=== PATIENT | male | born 1985 | race Caucasian/White ===

== ENCOUNTER 2017-11-12 14:14 | Day surgery (SDC) | END 2017-11-12 21:14 | disposition home or self-care (01) ==

== ENCOUNTER 2018-01-27 13:43 | Emergency (ER) | END 2018-01-27 16:36 | disposition home or self-care (01) ==

== ENCOUNTER 2019-02-21 07:40 | Emergency (ER) | payer BC ==
[~2019-02-21] VITALS: Ht 160 cm; Wt 111.3 kg
[~2019-02-21 07:40] MED LIST: ACET1TAB40 PO; FAMO-96 PO; IBUP-1542 PO
[2019-02-21 07:46] VITALS: BP 132/74; PULSE 68; RESP 18; Ht 160 cm; Wt 111.3 kg
--- NOTE | 2019-02-21 08:17 | ERD ---
ER Documentation Chief Complaint Chief Complaint right knee pain after lifting something heavy x2 days HPI 33-year-old male with no reported past medical history presents with complaint of right knee pain 2 days. States he was lifting a heavy object when he felt his knee give out a bit. Since that time is had some swelling and pain to the area. He denies any weakness or numbness to affected limb. He denies any other injuries. At time of evaluation patient able to take multiple steps in examination room with minimal discomfort. He has a primary care physician a regularly follows up with. ROS All systems reviewed and are negative except as per history of present illness. Medications Home Meds Active Scripts Ibuprofen* (Motrin*) 600 Mg Tab, 600 MG PO Q6, #30 TAB Prov:HENRY ELLIS PA-C 02/21/19 Famotidine* (Pepcid*) 20 Mg Tablet, 20 MG PO BID for 7 Days, #14 TAB Prov:OCTAVIO FERMIN MD 01/27/18 Acetaminophen with Codeine (Acetaminophen-Cod #3 Tablet) 1 Each Tablet, 1 TAB PO Q6H PRN for PAIN, #7 TAB Prov:OCTAVIO FERMIN MD 01/27/18 Allergies Allergies: Coded Allergies: No Known Allergy (Unverified , 02/21/19) PMhx/Soc History of Surgery: Yes (NASAL SURGERY) Anesthesia Reaction: No Hx Neurological Disorder: No Hx Respiratory Disorders: No Hx Cardiac Disorders: No Hx Psychiatric Problems: No Hx Miscellaneous Medical Probl: No Hx Alcohol Use: Yes (SOCIALLY) Hx Substance Use: No Hx Tobacco Use: No Smoking Status: Never smoker FmHx Family History: No diabetes, No coronary disease, No other Physical Exam Vitals Vital Signs Date Temp Pulse Resp B/P (MAP) Pulse Ox O2 O2 Flow FiO2 Time Delivery Rate 02/21/19 97.6 68 18 132/74 100 07:46 (93) Physical Exam I have reviewed the triage vital signs. Const: Well nourished, well developed, appears stated age Eyes: PERRL, no conjunctival injection HENT: NCAT, Neck supple without meningismus CV: RRR, Warm, well-perfused extremities RESP: CTAB, Unlabored respiratory effort GI: soft, non-tender, non-distended, no masses MSK: No gross deformities appreciated, right knee with mild swelling, negative Rajni, length negative anterior drawer Lower Extremity - bilateral: Skin: No laceration Compartments: Soft Motor: Full active range of motion hip/knee/ankle/foot Sensation: Intact to light touch FDWS/MF/LF/P surfaces. Bones: Nontender pelvis/knee/proximal tibia/ malleoli/foot Joints: No effusion or laxity Pulses/Perfusion: 2+ DP, Capillary refill < 2 seconds Skin: Warm, dry. No rashes Neuro: grossly non focal Psych: Appropriate mood and affect. Procedures/MDM 33-year-old male presents with complaint of right knee pain. Denies any recent significant trauma or fall. Symptoms likely secondary to knee sprain. I have low suspicion for any acute process warranting further work-up including imaging at this time. [place] knee exam does not meet requirement for imaging. Patient is to take NSAID medications, rice. Follow-up with his PMD in case symptoms do not improve and he requires additional work-up such as MRI imaging to rule out ligamentous injury. Patient agrees with this plan all questions answered. DISPOSITION PLAN: We discussed follow up with the patient's primary care doctor within 24 to 48 hours. Patient counseled regarding my diagnostic impression and care plan. Prior to discharge all questions answered. Pt agrees with treatment plan and understands strict return precautions. Precautionary instructions provided including instructions to return to the ER if not improving or for any worsening or changing symptoms or concerns. Disclaimer: Inadvertent spelling and grammatical errors are likely due to EHR/dictation software use and do not reflect on the overall quality of patient care. Also, please note that the electronic time recorded on this note does not necessarily reflect the actual time of the patient encounter. Departure Diagnosis: Primary Impression: Knee injury Condition: Stable Patient Instructions: Knee Sprain Referrals: [facility] (PCP) Additional Instructions: Call your primary care doctor TOMORROW for an appointment during the next 2-3 days.See the doctor sooner or return here if your condition worsens before your appointment time. Take anti-inflammatory medications as prescribed. This systems should improve with reduced swelling and pain. Still have knee instability you may need referral for additional imaging such as MRI. Please follow-up with your PMD. HENRY ELLIS PA-C Feb 21, 2019 08:17
== END 2019-02-21 08:52 | disposition home or self-care (01) ==
LOC: FTE 07:40
DX: S89.91XA Unspecified injury of right lower leg, initial encounter (principal); X50.0XXA Overexertion from strenuous movement or load, initial encounter; Y92.9 Unspecified place or not applicable
CPT/HCPCS: 99282